=== PATIENT | female | born 1980 | race Caucasian/White ===

== ENCOUNTER → 2017-05-12 | Outpatient (CLI) | payer MEDICARE, OTHER | END | disposition home or self-care (01) | LOC: LABWHC1 08:27 | PROVIDERS: ATTEND Psychiatry & Neurology Neurology | DX: G40.109 Localization-related (focal) (partial) symptomatic epilepsy and epileptic syndromes with simple partial seizures, not intractable, without status epilepticus (principal) | CPT/HCPCS: 36415; 80183; 84295 ==

== ENCOUNTER → 2018-02-22 | Outpatient (CLI) | payer MEDICARE, OTHER | END | disposition home or self-care (01) | LOC: LABWHC1 10:23 | PROVIDERS: ATTEND Psychiatry & Neurology Neurology | DX: G40.109 Localization-related (focal) (partial) symptomatic epilepsy and epileptic syndromes with simple partial seizures, not intractable, without status epilepticus (principal) | CPT/HCPCS: 36415; 80183; 84295 ==